=== PATIENT | female | born 1960 | race Caucasian/White ===

== ENCOUNTER 2018-09-06 08:24 | Day surgery (SDC) | payer OTHER ==
[2018-09-06] MEDS ORDERED: MIDAZOLAM 1 MG/ML 2 ML INJ (09:50)
[2018-09-06] MEDS ORDERED: FENTAnyl 50 MCG/ML VIAL (09:50)
== END 2018-09-06 13:35 | disposition home or self-care (01) ==
LOC: GIL 08:24
DX: Z12.11 Encounter for screening for malignant neoplasm of colon (principal); K64.8 Other hemorrhoids
CPT/HCPCS: 45378